=== PATIENT | male | born 1960 | race Caucasian/White ===

== ENCOUNTER → 2018-09-17 | Emergency (ER) | payer MEDICAID ==
[~2018-09-17] VITALS: Ht 165.1 cm; Wt 68.0 kg
[~2018-09-17] MED LIST: ACET325T45 PO; ARIP10TA12 PO; CLZP100T PO; DESM0.1T2 PO; GUAI5SYR2 PO; LAMO100T83 PO; LEVE750T70 PO; LEVO75TA5 PO; LORAZEPAM 1 MG TAB PO PRN; LORAZEPAM 2 MG INJ IM PRN; MIDO5TAB PO; MIRTAZAPINE 15 MG TAB PO SCH; MULTI PO; OLANZAPINE (ODT) 5 MG TAB ODT SCH; SENN-36 PO
--- NOTE | 2018-09-17 13:11 | ERD ---
ER Documentation Chief Complaint Chief Complaint Agitation HPI The patient is a 58-year-old male, presenting to the ER because he was hitting himself in the face at the senior care. He did not want to provide a history cooperative with the physical exam. The history is obtained from automotive product specialist and medical record Medical History: Parkinson disease, seizure disorder, hypothyroidism, schizophrenia, hypertension, GERD Past surgical history/social history/review of system: Unable to obtain due to his condition Medications Home Meds Unable to Obtain Active Prescriptions or Reported Meds Allergies Allergies: Coded Allergies: Unknown: Unable to obtain (Unverified , 09/17/18) Physical Exam Vitals Vital Signs Date Temp Pulse Resp B/P (MAP) Pulse Ox O2 O2 Flow FiO2 Time Delivery Rate 09/17/18 97.8 85 20 133/85 100 13:21 (101) Physical Exam Const: No acute distress. Head: Atraumatic. Eyes: Normal Conjunctiva. ENT: Normal External Ears, Nose and Mouth. Neck: Full range of motion. No meningismus. Resp: Clear to auscultation bilaterally. Cardio: Regular rate and rhythm. Abd: Soft, non distended, normal bowel sounds, non tender. Skin: No petechiae or rashes. Back: No midline or flank tenderness. Ext: No cyanosis, or edema. Neur: Limited due to his condition Psych: Flat Affect Result Diagram: 09/17/18 1341 09/17/18 1341 Results 24 hrs Laboratory Tests Test 09/17/18 13:41 09/17/18 15:51 White Blood Count 7.6 10^3/ul Red Blood Count 4.67 10^6/ul Hemoglobin 13.7 g/dl Hematocrit 42.1 % Mean Corpuscular Volume 90.1 fl Mean Corpuscular Hemoglobin 29.3 pg Mean Corpuscular Hemoglobin Concent 32.5 g/dl Red Cell Distribution Width 12.5 % Platelet Count 239 10^3/UL Mean Platelet Volume 9.2 fl Immature Granulocytes % 0.400 % Neutrophils % 72.8 % Lymphocytes % 19.1 % Monocytes % 6.2 % Eosinophils % 0.8 % Basophils % 0.7 % Nucleated Red Blood Cells % 0.0 /100WBC Immature Granulocytes # 0.030 10^3/ul Neutrophils # 5.5 10^3/ul Lymphocytes # 1.5 10^3/ul Monocytes # 0.5 10^3/ul Eosinophils # 0.1 10^3/ul Basophils # 0.1 10^3/ul Nucleated Red Blood Cells # 0.0 10^3/ul Sodium Level 139 mmol/L Potassium Level 4.3 mmol/L Chloride Level 100 mmol/L Carbon Dioxide Level 28 mmol/L Anion Gap 11 Blood Urea Nitrogen 17 mg/dl Creatinine 0.80 mg/dl Est Glomerular Filtrat Rate mL/min > 60 mL/min Glucose Level 112 mg/dl Calcium Level 9.8 mg/dl Total Bilirubin 0.7 mg/dl Direct Bilirubin 0.00 mg/dl Indirect Bilirubin 0.7 mg/dl Aspartate Amino Transf (AST/SGOT) 37 IU/L Alanine Aminotransferase (ALT/SGPT) 27 IU/L Alkaline Phosphatase 98 IU/L Total Protein 7.0 g/dl Albumin 4.2 g/dl Globulin 2.80 g/dl Albumin/Globulin Ratio 1.50 Salicylates Level < 1.0 mg/dl Acetaminophen Level < 10.0 ug/ml Ethyl Alcohol Level < 10.0 mg/dl Urine Color YELLOW Urine Clarity CLEAR Urine pH 5.0 Urine Specific [place] 1.027 Urine Ketones 1+ mg/dL Urine Nitrite NEGATIVE mg/dL Urine Bilirubin NEGATIVE mg/dL Urine Urobilinogen 1+ mg/dL Urine Leukocyte Esterase NEGATIVE Maryann/ul Urine Microscopic RBC 8 /HPF Urine Microscopic WBC 3 /HPF Urine Calcium Oxalate Crystals FEW /HPF Urine Bacteria FEW /HPF Urine Mucus MANY /HPF Urine Hemoglobin NEGATIVE mg/dL Urine Glucose NEGATIVE mg/dL Urine Total Protein 1+ mg/dl Urine Opiates Screen Negative Urine Barbiturates Negative Urine Amphetamines Screen Negative Urine Benzodiazepines Screen Negative Urine Cocaine Screen Negative Urine Cannabinoids Negative Procedures/MDM MEDICAL MAKING DECISION: The patient is a 58-year-old male, presenting with acute psychosis. The differential diagnoses considered include but are not limited to the decompensated psychiatric illness, medical noncompliance, anxiety attack, panic attack Departure Diagnosis: Primary Impression: Psychosis Additional Impression: Anemia Condition: Stable Comments He was evaluated by telepsychiatrist, who recommended involuntary hold. Her recommendations were carried out. He is cleared for psychiatric evaluation and admission TASH YUSUF MD Sep 17, 2018 13:11
[2018-09-17 13:21] VITALS: Ht 165.1 cm; Wt 68.0 kg
--- NOTE | 2018-09-17 16:29 | PSY ---
Date/Time of Note Date/Time of Note DATE: 09/17/18 TIME: 16:24 Psychiatric Subjective Eval Consent Pt consented to telemedicine: Yes Subjective Evaluation Patient location: emergency Chief Complaint: Pt. ROSY from [facility], hitting self on face, suicidal ideation History of present illness 58 yo single disabled male with hx schizophrenia, parkinsons disease,BIB ambulance due to hitting his head on the wall; pt says he wants to "end it all"; he was witnessed hitting his head with his fists and wrapping a cord around his neck while in ED. Pt says he is depressed and suicidal and doesn't want to live anymore, says the world will end, he denies AH or VH; he has flat affect.He denies HI.He is on meds but doesn't know the names of his meds; he is poor historian.he is oriented to self and place. Past psychiatric history hx schizophrenia , on conservatorship Hospitalization: Suicidal Attempt(s) Medical history Parkinsons Allergies: Coded Allergies: Unknown: Unable to obtain (Unverified , 09/17/18) Substance Abuse Substance use: No known substance abuse Social History Marital status: single DPA/Conservatorship: Yes Occupation/Group Home: disabled Psychiatric Objective Eval Mental Status Examination: Appearance: Disheveled Eye Contact: Fair Psychomotor Activity: Slow Behavior: Cooperative Speech: Soft, Slowed, Prolong Speech Latency AFFECT: Flat Mood: Depressed Thought Content: Delusions Suicidal: Yes Homicidal: No Orientation: x2 Cognition: Alert Insight: Impared Judgement: Impared Laboratory Results Laboratory Tests Test 09/17/18 13:41 White Blood Count 7.6 10^3/ul Red Blood Count 4.67 10^6/ul Hemoglobin 13.7 g/dl Hematocrit 42.1 % Mean Corpuscular Volume 90.1 fl Mean Corpuscular Hemoglobin 29.3 pg Mean Corpuscular Hemoglobin Concent 32.5 g/dl Red Cell Distribution Width 12.5 % Platelet Count 239 10^3/UL Mean Platelet Volume 9.2 fl Immature Granulocytes % 0.400 % Neutrophils % 72.8 % Lymphocytes % 19.1 % Monocytes % 6.2 % Eosinophils % 0.8 % Basophils % 0.7 % Nucleated Red Blood Cells % 0.0 /100WBC Immature Granulocytes # 0.030 10^3/ul Neutrophils # 5.5 10^3/ul Lymphocytes # 1.5 10^3/ul Monocytes # 0.5 10^3/ul Eosinophils # 0.1 10^3/ul Basophils # 0.1 10^3/ul Nucleated Red Blood Cells # 0.0 10^3/ul Sodium Level 139 mmol/L Potassium Level 4.3 mmol/L Chloride Level 100 mmol/L Carbon Dioxide Level 28 mmol/L Anion Gap 11 Blood Urea Nitrogen 17 mg/dl Creatinine 0.80 mg/dl Est Glomerular Filtrat Rate mL/min > 60 mL/min Glucose Level 112 mg/dl Calcium Level 9.8 mg/dl Total Bilirubin 0.7 mg/dl Direct Bilirubin 0.00 mg/dl Indirect Bilirubin 0.7 mg/dl Aspartate Amino Transf (AST/SGOT) 37 IU/L Alanine Aminotransferase (ALT/SGPT) 27 IU/L Alkaline Phosphatase 98 IU/L Total Protein 7.0 g/dl Albumin 4.2 g/dl Globulin 2.80 g/dl Albumin/Globulin Ratio 1.50 Salicylates Level < 1.0 mg/dl Acetaminophen Level < 10.0 ug/ml Ethyl Alcohol Level < 10.0 mg/dl Assessment and Plan Assessment/Diagnosis Diagnosis PARANOID SCHIZOPHRENIA. NEUROCOGNITIVE DISORDER. Recommendation/Plan Medication Management ZYPREXA ZYDIS 2.5 MG POQHS; REMERON SOLTAB 7.5 MG POQHS ; FOR AGITATION: ATIVAN 2 MG IM PRN Q 8 HRS Discharge Disposition: Psychiatric inpatient Legal Status: Place involuntary hold Other PLEASE TRANSFER TO INPT PSYCH FOR DTS. 1:1 MACKENZIE. GRACE NAIR MD Sep 17, 2018 16:29
[2018-09-17] MEDS: OLANZAPINE (ODT) 5 MG TAB ODT SCH (22:12)
[2018-09-17] MEDS: MIRTAZAPINE 15 MG TAB PO SCH (22:12)
--- NOTE | 2018-09-18 02:08 | EN ---
Date/Time of Note Date/Time of Note DATE: 09/18/18 TIME: 02:07 (ASAEL GUEVARA) ER Progress Note Psychiatric Observation Note: Indication: Psychosis Duration: Greater than 4 hours Family history: As documented in original HPI The patient was observed with serial exams over the above timeframe. The patient continued to be well-appearing, and observation continued without complication. All other needs have been met during emergency department stay. Routine psychiatric medications ordered: Pending placement Hold status: Recommended hold by telemetry psychiatry. Pending placement at [facility] (ASAEL GUEVARA) I assumed care at 6 AM. Patient's been resting comfortably with no significant interval changes. Plan: Patient will continue on observation pending placement for 5150. He will continue on his ongoing recommended psychiatric medications with medications on an as-needed basis. ([place]) ASAEL GUEVARA Sep 18, 2018 02:08 PAR[place] Sep 18, 2018 08:53
[2018-09-18] MEDS: MIRTAZAPINE 15 MG TAB PO SCH (20:52)
[2018-09-18] MEDS: OLANZAPINE (ODT) 5 MG TAB ODT SCH (20:52)
--- NOTE | 2018-09-19 15:51 | PSY ---
Date/Time of Note Date/Time of Note DATE: 09/19/18 TIME: 15:47 Psychiatric Subjective Eval Consent Pt consented to telemedicine: Yes Subjective Evaluation Patient location: emergency Chief Complaint: PtDevi GALLEGOS from [facility], hitting self on face, suicidal ideation Reason for consult: SA History of present illness 58 yo male with schizophrenia aad Parkinsons disease who was seen by this MD on09/17/18, in ED due to self harm; while in ED also wrapped cord around his neck; pt says he is "not so much" suicidal anymore; he does admit to command AH. He is guarded; he is internally preoccupied; he is disorganized PLease see a consultation note from 09/17/18.. Past psychiatric history prior inpt Hospitalization: yes Medical history Problems Medical Problems: (1) Anemia Status: Acute (2) Psychosis Status: Acute Allergies: Coded Allergies: Penicillins (Verified Allergy, Unknown, 09/18/18) Substance Abuse Substance use: No known substance abuse Social History Marital status: single DPA/Conservatorship: Yes Occupation/Long-Term: disabled Psychiatric Objective Eval Mental Status Examination: Appearance: Disheveled Eye Contact: Poor Psychomotor Activity: Slow Behavior: Guarded Speech: Monotone AFFECT: Depressed Mood: Irritable Though Process: Tangential Thought Content: Hallucinations Suicidal: Yes Homicidal: No On 72 hour hold: Yes Orientation: x2 Cognition: Alert Insight: Impared Judgement: Impared Laboratory Results Laboratory Tests Test 09/17/18 15:51 Urine Color YELLOW Urine Clarity CLEAR Urine pH 5.0 Urine Specific [place] 1.027 Urine Ketones 1+ mg/dL Urine Nitrite NEGATIVE mg/dL Urine Bilirubin NEGATIVE mg/dL Urine Urobilinogen 1+ mg/dL Urine Leukocyte Esterase NEGATIVE Maryann/ul Urine Microscopic RBC 8 /HPF Urine Microscopic WBC 3 /HPF Urine Calcium Oxalate Crystals FEW /HPF Urine Bacteria FEW /HPF Urine Mucus MANY /HPF Urine Hemoglobin NEGATIVE mg/dL Urine Glucose NEGATIVE mg/dL Urine Total Protein 1+ mg/dl Urine Opiates Screen Negative Urine Barbiturates Negative Urine Amphetamines Screen Negative Urine Benzodiazepines Screen Negative Urine Cocaine Screen Negative Urine Cannabinoids Negative Assessment and Plan Assessment/Diagnosis Diagnosis PARANOID SCHIZOPHRENIA. Recommendation/Plan Medication Management PLEASE CONTINUE CURRENT MEDS. CONSDIER REMERON 15 MG POQHS FOR DEPRESSION, INSOMNIA. Multiple antipsychotics: Yes Discharge Disposition: Psychiatric inpatient Legal Status: Continue involuntary hold GRACE NAIR MD Sep 19, 2018 15:51
[2018-09-19] MEDS: OLANZAPINE (ODT) 5 MG TAB ODT SCH ×2 (20:29→20:51)
[2018-09-19] MEDS: MIRTAZAPINE 15 MG TAB PO SCH (21:00)
--- NOTE | 2018-09-20 07:12 | EN ---
Date/Time of Note Date/Time of Note DATE: 09/20/18 TIME: 07:10 ER Progress Note Psychiatric Observation Note: Indication: Suicidal ideation Duration: Greater than 60 hours Family history: As documented in original HPI The patient was observed with serial exams over the above timeframe. The patient continued to be well-appearing, and observation continued without complication. All other needs have been met during emergency department stay. Routine psychiatric medications ordered: Yes, see EMR Hold status: Currently on 5150 hold Placement status: The patient is a very difficult placement because of underlying medical history. The patient will continue to be bored in the emergency room until we can find placement. Phone calls were made throughout the night. Repeat telemetry medicine psychiatry evaluation scheduled for today. PHUONG AGUERO MD Sep 20, 2018 07:12
--- NOTE | 2018-09-20 07:47 | PSY ---
Date/Time of Note Date/Time of Note DATE: 09/20/18 TIME: 07:46 Psychiatric Subjective Eval Consent Pt consented to telemedicine: Yes Subjective Evaluation Patient location: emergency Chief Complaint: Pt. ROSY from [facility], hitting self on face, suicidal ideation Reason for consult: SA Hospitalization: yes Medical history Problems Medical Problems: (1) Anemia Status: Acute (2) Psychosis Status: Acute Allergies: Coded Allergies: Penicillins (Verified Allergy, Unknown, 09/18/18) Social History Marital status: single DPA/Conservatorship: Yes Occupation/Skilled Nursing: disabled Assessment and Plan Recommendation/Plan Discharge Disposition: Psychiatric inpatient Legal Status: Continue involuntary hold Assessment Additional comments: IDENTIFYING INFORMATION: 58 year old Male patient who is currently located at the hospital and for whom psychiatric consultation was requested. SOURCES OF INFORMATION: The patient who appears to be unreliable and the medical records; the nursing staff. CHIEF COMPLAINT: "yeah, yeah". HISTORY OF PRESENT ILLNESS: The patient was interviewed via telemedicine in the presence of and under the supervision of nursing staff of the hospital. The consent to conducting this interview via telemedicine was obtained by the nursing staff at the hospital. ETHAN Driver reports that the patient presented hitting himself, stating that he wants to , has h/o schizophrenia. Pt has been withdrawn, refusing to eat and take medications at times, and wrapped a cord around his neck. Is on a 5150 hold; The patient reports having AH, is RTIS and is not able to answer most questions appropriately. Denies using alcohol or drugs. Per Dr. Resendez's note, from 09/17/18 the pt stated that he wanted to and wrapped a cord around his neck and had SI. Zyprexa 2.5 mg po qhs, remeron soltab 7.5 mg po qhs, ativan 2 mg IM prn were recommended. PAST MEDICAL HISTORY: Parkinson's disease, seizure disorder. CURRENT MEDICATIONS: ativan 1 mg po q8 hrs prn anxiety, zyprexa 2.5 mg po qhs, remeron 7.5 mg po qhs. ALLERGIES TO MEDICATIONS: PCN. LABORATORY TESTS: CBC with Hb 13.7, CMP wnl, UDS -, alcohol level not detected. SOCIAL HISTORY: unable to assess. REVIEW OF SYSTEMS: unable to assess due to the patient not being able to cooperate. MENTAL STATUS EXAMINATION: General Appearance and Behavior: restless, hit his head with his hand right after the interview, appears to be responding to internal stimuli, uncooperative with most of the interview, distant with the current interviewer, makes poor eye contact, poorly groomed, no abnormal movements noted. Speech: Normal rate, regular rhythm, normal latency, normal volume. Flow of thought: tangential, illogical, not goal-directed. Content of thought: + AH, positive for delusions, Mood: did not respond appropriately. Affect: flat, decreased range of reactivity. Attention: normal based on the interview. Insight: poor. Judgment: poor. Memory: normal based on the interview. Sensorium: alert and oriented to person, unable to assess further. ASSESSMENT: The patient's presentation and history are consistent with the diagnosis of schizophrenia. The patient presents with an exacerbation of psychosis in the context of questionable medication compliance, psychosocial stressors . PLAN: - Medication management: Would increase Zyprexa to 5 mg by mouth twice a day, continue Remeron 7.5 mg by mouth at bedtime. Would start haloperidol 5 mg IM PRN severe agitation q4 hours. Would start diphenhydramine 50 mg IM PRN severe agitation q4 hours. Would start lorazepam 2 mg IM PRN severe agitation q4 hours Will defer to the inpatient psychiatry team for other medication changes. - Labs: No other laboratory tests are needed at this time. - Psychotherapy: Provided supportive psychotherapy and psychoeducation. - Disposition: Would recommend involuntary admission to the inpatient psychiatric unit given the severity of the patient's psychiatric condition and the fact that the patient is an imminent danger to self and/or others so long as the patient has been cleared medically for admission to psychiatry. Inpatient psychiatric admission is at this time the least restrictive environment where the patient can receive the psychiatric care that is needed. Would place on suicide precautions. The patient fulfills criteria for being placed on an involuntary hold for being a danger to self due to a psychiatric disorder. Discussed about the above plan with Dr. Rooney. ADINA RIVERS MD Sep 20, 2018 07:47
[2018-09-20] MEDS: OLANZAPINE (ODT) 5 MG TAB ODT SCH (10:16)
[2018-09-20] MEDS: LEVETIRACETAM 750 MG TAB PO SCH (10:17)
[2018-09-21] MEDS: LEVETIRACETAM 750 MG TAB PO SCH (00:03)
[2018-09-21] MEDS: MIRTAZAPINE 15 MG TAB PO SCH (00:05)
[2018-09-21] MEDS: OLANZAPINE (ODT) 5 MG TAB ODT SCH (00:41)
[2018-09-21 04:45] VITALS: BP 109/73; PULSE 68; RESP 16
--- NOTE | 2018-09-21 05:09 | EN ---
Date/Time of Note Date/Time of Note DATE: 09/21/18 TIME: 05:09 ER Progress Note Observation Note: Time: 4 hours Family Hx: No Hypertension Evaluation: Multiple exams showed improving symptoms and no evidence of decompensation, currently awaiting placement JACK MATIAS DO Sep 21, 2018 05:09
== END | disposition home or self-care (01) ==
LOC: E/R 12:59
DX: F29 Unspecified psychosis not due to a substance or known physiological condition (principal); D64.9 Anemia, unspecified
CPT/HCPCS: 36415; 80053; 80307; 81001; 85025; Z7502; Z7610; 99283; J2060